=== PATIENT | female | born 1955 | race Two or more races ===

== ENCOUNTER 2022-04-24 18:03 | Emergency (ER) | payer OTHER ==
[~2022-04-24] VITALS: Ht 165.1 cm; Wt 52.6 kg
[2022-04-24] MEDS ORDERED: ATACAND16 MG (18:39)
[2022-04-24] MEDS ORDERED: LEVOTHYROXINE25 MCG (18:39)
== END 2022-04-24 19:38 | disposition home or self-care (01) ==
LOC: ER 18:03
DX: M60.9 Myositis, unspecified (principal)

== ENCOUNTER 2022-05-17 13:19 | Emergency (ER) | payer OTHER ==
[~2022-05-17] VITALS: Ht 165.1 cm; Wt 54.4 kg
[~2022-05-17 13:19] MED LIST: ATACAND16 MG; LEVOTHYROXINE25 MCG
== END 2022-05-17 16:23 | disposition home or self-care (01) ==
LOC: ER 13:19
DX: U07.1 COVID-19 (principal); Z88.6 Allergy status to analgesic agent